=== PATIENT | male | born 1980 | race Caucasian/White ===

== ENCOUNTER 2017-05-13 14:38 | Emergency (ER) | payer BC ==
[~2017-05-13] VITALS: Ht 167.6 cm; Wt 102.1 kg
--- NOTE | 2017-05-13 14:47 | NUR ---
PT CALLED TO TRIAGE, PT NOT IN WAITING ROOM
--- NOTE | 2017-05-13 15:05 | NUR ---
SELF PRESENT TO ED FOR COUGH AND CONGESTION X 2 WEEKS, WITH TWO EPISODES OF BLOOD TINGED SPUTUM. AFEBRILE. VSS
--- NOTE | 2017-05-13 15:39 | NUR ---
Patient discharged to home in stable condition. Written and verbal after care instructions given. Patient verbalizes understanding of instruction.
[2017-05-13 15:57] VITALS: BP 124/40
== END 2017-05-13 15:58 | disposition home or self-care (01) ==
LOC: ER 14:42
DX: R05 Cough (principal); E66.9 Obesity, unspecified; J45.909 Unspecified asthma, uncomplicated
CPT/HCPCS: 71020; 99284; A4606; Z7610

== ENCOUNTER 2017-05-20 18:36 | Emergency (ER) | payer BC ==
[~2017-05-20] VITALS: Ht 167.6 cm; Wt 99.8 kg
[2017-05-20] MEDS ORDERED: IPRATROPIUM NEB FS 0.5 MG/2.5 ML AMPUL.NEB NEB ONE (19:00)
[2017-05-20] MEDS ORDERED: ALBUTEROL FS 2.5 MG/3 ML VIAL.NEB CONTNEB ONE (19:00)
[2017-05-20] MEDS ORDERED: IV NS 0.9% 1,000 ML BAG IV ONE (19:00)
[2017-05-20] MEDS ORDERED: methylPREDNISolone SOD SUCC 125 MG/2ML VIAL IV ONE (19:00)
--- NOTE | 2017-05-20 19:00 | NUR ---
PATIENT PRESENT TO ER, C/O DIFFICULTY BREATHING AND SHORTNESS OF BREATH. STATING HE WAS AT THE ER 1 WEEK AGO WITH THE SAME ISSUES. PATIENT IS A/OX 4. BREATHING EVEN AND UNLABORED, WHEEZING HEARD ON AUSCULTATION. PATIENT IN NO DISTRESS. SAFETY AND COMFORT MEASURES IN PLACE. AWAITING MD ORDERS.
[2017-05-20] MEDS ORDERED: methylPREDNISolone SOD SUCC 125 MG/2ML VIAL ONE (19:02)
--- NOTE | 2017-05-20 19:15 | NUR ---
NEW IV STARTED LEFT HAND, 20 G.
[2017-05-20] MEDS ORDERED: ALBUTEROL FS 2.5 MG/3 ML VIAL.NEB ONE (19:34)
[2017-05-20] MEDS ORDERED: IPRATROPIUM NEB FS 0.5 MG/2.5 ML AMPUL.NEB ONE (19:34)
--- NOTE | 2017-05-20 19:36 | NUR ---
PRANAV BRUMFIELD AT BEDSIDE FOR BREATHING TREATMENT.
[2017-05-20 20:11] VITALS: BP 149/96
--- NOTE | 2017-05-20 20:11 | NUR ---
IV removed. Catheter intact and site benign. Pressure and 4x4 applied to site. No bleeding noted. Patient discharged to home in stable condition. Written and verbal after care instructions given. Patient verbalizes understanding of instruction. Patient is ambulatory with steady gait, no further complaints.
== END 2017-05-20 20:12 | disposition home or self-care (01) ==
LOC: ER 18:44
DX: J20.9 Acute bronchitis, unspecified (principal)
CPT/HCPCS: 71010; 94644; 96361; 96374; 99285; A4606; J2930; J7030; Z7610

== ENCOUNTER 2017-08-30 20:19 | Emergency (ER) | payer BC ==
[~2017-08-30] VITALS: Ht 167.6 cm; Wt 108.9 kg
--- NOTE | 2017-08-30 21:20 | NUR ---
PT A/OX4 PT C/O COUGH AND SOB X 4 DAYS AND STATES IT HAS BEEN GETTING PRODUCTIVELY WORSE, PT ON MONITOR, RT AT BEDSIDE BREATHING TREATMENT ORDERED, GRINDER SET UP OPERATOR THREAD ANGEL AT BEDSIDE WILL CONTINUE TO MONITOR.
[2017-08-30] MEDS ORDERED: IPRATROPIUM NEB FS 0.5 MG/2.5 ML AMPUL.NEB ONE (21:29)
[2017-08-30] MEDS ORDERED: ALBUTEROL FS 2.5 MG/3 ML VIAL.NEB ONE ×2 (21:29→22:19)
[2017-08-30] MEDS ORDERED: predniSONE 20 MG TABLET PO ONE (21:30)
[2017-08-30] MEDS ORDERED: ALBUTEROL FS 2.5 MG/3 ML VIAL.NEB NEB ONE (21:30)
[2017-08-30] MEDS ORDERED: predniSONE 20 MG TABLET ONE (21:30)
[2017-08-30] MEDS ORDERED: IPRATROPIUM NEB FS 0.5 MG/2.5 ML AMPUL.NEB NEB ONE (21:30)
[2017-08-30] MEDS ORDERED: ALBUTEROL FS 2.5 MG/3 ML VIAL.NEB CONTNEB ONE (22:30)
[2017-08-30] MEDS ORDERED: DOXYCYCLINE HYCLATE (100 MG) 100 MG TABLET PO ONE (23:00)
--- NOTE | 2017-08-30 23:18 | NUR ---
Breathing tx complete. pt reports feeling better w/ resp even & unlabored, denies any pain, no sob w/ nad noted. Patient discharged to home in stable condition. Written and verbal after care instructions given. Patient verbalizes understanding of instruction.
[2017-08-30 23:19] VITALS: BP 138/71
== END 2017-08-30 23:20 | disposition home or self-care (01) ==
LOC: ER 20:20
DX: J20.9 Acute bronchitis, unspecified (principal)
CPT/HCPCS: 71010; 94640; 99283; A4606; J7512; Z7610

== ENCOUNTER 2019-01-25 09:06 | Emergency (ER) | payer OTHER ==
[~2019-01-25] VITALS: Ht 170.2 cm; Wt 115.7 kg
[2019-01-25 09:12] VITALS: BP 154/90
[2019-01-25] MEDS ORDERED: predniSONE 20 MG TABLET ONE (09:50)
[2019-01-25] MEDS ORDERED: ALBUTEROL FS 2.5 MG/3 ML VIAL.NEB ONE (09:54)
[2019-01-25] MEDS ORDERED: IPRATROPIUM NEB FS 0.5 MG/2.5 ML AMPUL.NEB ONE (09:54)
[2019-01-25] MEDS ORDERED: predniSONE 20 MG TABLET PO ONE (10:00)
[2019-01-25] MEDS ORDERED: ALBUTEROL FS 2.5 MG/3 ML VIAL.NEB NEB ONE (10:00)
[2019-01-25] MEDS ORDERED: IPRATROPIUM NEB FS 0.5 MG/2.5 ML AMPUL.NEB NEB ONE (10:00)
== END 2019-01-25 11:46 | disposition home or self-care (01) ==
LOC: ER 09:10
DX: J45.901 Unspecified asthma with (acute) exacerbation (principal); I10 Essential (primary) hypertension
CPT/HCPCS: 94640; 99283; J7512

== ENCOUNTER 2020-06-04 09:19 | Emergency (ER) | payer OTHER ==
[~2020-06-04] VITALS: Ht 170.2 cm; Wt 131.1 kg
--- NOTE | 2020-06-04 09:35 | NUR ---
PRESSURE LIKE CHEST PAIN, FEELING FATIGUED SINCE YESTERDAY. PATIENT A/OX4, BREATHING EVEN AND UNLABORED, NO SOB NOTED, ATTACHED TO THE MECHANICAL HANDYMAN. NO DISTRESS NOTED.
--- NOTE | 2020-06-04 09:40 | NUR ---
DR. TATE AT BEDSIDE FOR EVAL.
[2020-06-04] MEDS ORDERED: NITROGLYCERIN 0.4 MG/TAB BOTTLE ONE (09:44)
[2020-06-04 09:51] LABS: BASOPHILS # (AUTO) 0.1 /CMM (0.0-0.2); BASOPHILS % (AUTO) 1.2 % (0.0-2.0); EOSINOPHILS % (AUTO) 3.7 % (0.0-6.0); HEMATOCRIT 48 % (39-51); HEMOGLOBIN 16.3 g/dL (13.5-17.5); LYMPHOCYTES % (AUTO) 18.8 % (20.0-44.0); MEAN CORPUSCULAR HGB CONC 34 g/dl (31.0-36.0); MEAN CORPUSCULAR VOLUME 92 fL (80-96); MONOCYTES # (AUTO) 0.4 /CMM (0.1-1.30); MONOCYTES % (AUTO) 8.3 % (2.0-12.0); NEUTROPHILS # (AUTO) 3.5 /CMM (1.8-8.9); PLATELET COUNT (AUTO) 302 /CMM (150-450); RED BLOOD CELL COUNT(AUTO) 5.28 MIL/uL (4.5-6.0); WHITE BLOOD COUNT (AUTO) 5.2 K/uL (4.3-11.0)
[2020-06-04 10:00] LABS: CALCIUM, SERUM 8.4 mg/dL (8.5-10.1); CARBON DIOXIDE 24 mmol/L (21-32); CHLORIDE 103 mmol/L (98-107); CREATININE 0.9 mg/dL (0.6-1.3); GLUCOSE 157 mg/dL (74-106); POTASSIUM 3.8 mmol/L (3.5-5.1); SODIUM SERUM 140 mmol/L (136-145); UREA NITROGEN, BLOOD 9 mg/dL (7-18)
[2020-06-04] MEDS ORDERED: LABETALOL HCL IV 100MG VIAL IV ONE (10:00)
[2020-06-04] MEDS ORDERED: NITROGLYCERIN 0.4 MG/TAB BOTTLE SL ONE (10:00)
[2020-06-04 10:11] LABS: ALANINE AMINOTRANSFERASE 43 U/L (12-78); ALBUMIN 3.8 g/dL (3.4-5.0); ALKALINE PHOSPHATASE 79 U/L (46-116); ASPARTATE AMINOTRANSFERASE 88 U/L (15-37); B-TYPE NATRIURETIC PEPTIDE 48 PG/ML (0-125); BILIRUBIN,DIRECT 0.1 mg/dL (0.0-0.2); BILIRUBIN,TOTAL 0.4 mg/dL (0.2-1.0); TOTAL PROTEIN, SERUM 7.5 g/dL (6.4-8.2)
--- NOTE | 2020-06-04 10:57 | NUR ---
PATIENT'S CHEST PAIN HAS IMPROVED. IV removed. Catheter intact and site benign. Pressure and 4x4 applied to site. No bleeding noted. Patient discharged to home in stable condition. Written and verbal after care instructions given. Patient verbalizes understanding of instruction.
[2020-06-04 10:58] VITALS: BP 131/69
== END 2020-06-04 10:58 | disposition home or self-care (01) ==
LOC: ER 09:19
DX: I10 Essential (primary) hypertension (principal); E66.01 Morbid (severe) obesity due to excess calories; R00.0 Tachycardia, unspecified; R07.89 Other chest pain; Z68.42 Body mass index [BMI] 45.0-49.9, adult; Z91.19 Patient's noncompliance with other medical treatment and regimen
CPT/HCPCS: 36415; 71045; 80048; 80076; 83880; 84484; 85025; 85730; 93005; 96374; 99285; J3490

== ENCOUNTER 2020-06-10 17:51 | Emergency (ER) | payer OTHER ==
[~2020-06-10] VITALS: Ht 170.2 cm; Wt 125.2 kg
--- NOTE | 2020-06-10 18:17 | NUR ---
CAME IN FOR NNAUSEA, VOMITING AND DIARRHEA. ALSO C/O NO APPETITE x 3 DAYS. EXPOSED TO CO-WORKER TESTED POSITIVE FOR COVID 19. TO ER BED 8, HOOKED TO MONITOR AND POX, CHANGED TO HOSP GOWN, WARM BLANKET PROVIDED, PATIENT AAO x 4, BREATHING EVEN AND UNLABORED, NOT IN RESPIRATORY DISTRESS. AWAITING MD ROBIN.
--- NOTE | 2020-06-10 18:22 | NUR ---
GENEVA GONZALEZ AT BEDSIDE FOR EVAL
[2020-06-10] MEDS ORDERED: ONDANSETRON HCL/PF 4 MG/2 ML VIAL ONE (18:28)
[2020-06-10] MEDS ORDERED: IV NS 0.9% 1,000 ML BAG IV ONE ×2 (18:30→19:30)
[2020-06-10] MEDS ORDERED: ONDANSETRON HCL/PF - ER 4 MG/2 ML VIAL IV ONE (18:30)
[2020-06-10 18:43] LABS: BASOPHILS # (AUTO) 0.1 /CMM (0.0-0.2); BASOPHILS % (AUTO) 0.7 % (0.0-2.0); EOSINOPHILS % (AUTO) 1.5 % (0.0-6.0); HEMATOCRIT 52 % (39-51); HEMOGLOBIN 17.6 g/dL (13.5-17.5); LYMPHOCYTES # (AUTO) 1.3 /CMM (0.8-4.8); LYMPHOCYTES % (AUTO) 11.8 % (20.0-44.0); MEAN CORPUSCULAR HGB CONC 34 g/dl (31.0-36.0); MEAN CORPUSCULAR VOLUME 91 fL (80-96); MONOCYTES % (AUTO) 8.6 % (2.0-12.0); NEUTROPHILS # (AUTO) 8.7 /CMM (1.8-8.9); NEUTROPHILS % (AUTO) 77.4 % (43.0-81.0); PLATELET COUNT (AUTO) 338 /CMM (150-450); RED BLOOD CELL COUNT(AUTO) 5.74 MIL/uL (4.5-6.0); WHITE BLOOD COUNT (AUTO) 11.2 K/uL (4.3-11.0)
--- NOTE | 2020-06-10 18:59 | NUR ---
MÁRQUEZ VIRUS SWAB PCR DONE AND SENT TO LAB.
[2020-06-10 19:05] LABS: CALCIUM, SERUM 9.3 mg/dL (8.5-10.1); CREATININE 1.9 mg/dL (0.6-1.3); POTASSIUM 3.3 mmol/L (3.5-5.1)
--- NOTE | 2020-06-10 19:07 | NUR ---
ENDORSEMENT GIVEN TO JANAK MCDONALD FOR KELLY
[2020-06-10 19:08] LABS: ALBUMIN 4.3 g/dL (3.4-5.0); BILIRUBIN,DIRECT 0.3 mg/dL (0.0-0.2); BILIRUBIN,TOTAL 1.2 mg/dL (0.2-1.0); TOTAL PROTEIN, SERUM 8.3 g/dL (6.4-8.2)
--- NOTE | 2020-06-10 19:14 | NUR ---
REPORT RECEIVED FROM HARRY BILLS FOR KELLY
--- NOTE | 2020-06-10 19:14 | NUR ---
REPORT RECEIVED FROM HARRY BILLS FOR KELLY
--- NOTE | 2020-06-10 19:20 | NUR ---
PT AAOX4, PT HAS NO MEDICAL COMPLAINTS AT THIS TIME, RESPIRATIONS EVEN AND UNLABORED ON RA W/ NAD NOTED. PT CONNECTED TO THE MONITOR AND POX. CALL LIGHT WITHIN REACH. WILL CONTINUE TO MONITOR ACCORDINGLY
[2020-06-10] MEDS ORDERED: POTASSIUM CHLORIDE 20 MEQ TAB.PRT.SR PO ONE ×2 (19:26→19:30)
--- NOTE | 2020-06-10 20:41 | NUR ---
Patient discharged to home in stable condition. Written and verbal after care instructions given. Patient verbalizes understanding of instruction.IV removed. Catheter intact and site benign. Pressure and 4x4 applied to site. No bleeding noted.
[2020-06-10 20:42] VITALS: BP 124/82
== END 2020-06-10 20:42 | disposition home or self-care (01) ==
LOC: ER 17:53
DX: E86.0 Dehydration (principal); N17.9 Acute kidney failure, unspecified; R11.2 Nausea with vomiting, unspecified; R19.7 Diarrhea, unspecified; Z20.828 Contact with and (suspected) exposure to other viral communicable diseases; I10 Essential (primary) hypertension; J45.909 Unspecified asthma, uncomplicated
CPT/HCPCS: 36415; 80048; 80076; 83690; 85025; 96361; 96374; 99284; C9803; J2405; J7030 ×2; U0003

== ENCOUNTER 2020-06-16 12:16 | Emergency (ER) | payer OTHER ==
[~2020-06-16] VITALS: Ht 170.2 cm; Wt 127.0 kg
[2020-06-16 12:23] VITALS: BP 168/108
--- NOTE | 2020-06-16 12:33 | NUR ---
Patient discharged to home in stable condition. Written and verbal after care instructions given. Patient verbalizes understanding of instruction.
== END 2020-06-16 12:34 | disposition home or self-care (01) ==
LOC: ER 12:18
DX: Z00.00 Encounter for general adult medical examination without abnormal findings (principal); I10 Essential (primary) hypertension; J45.909 Unspecified asthma, uncomplicated

== ENCOUNTER 2021-06-10 06:23 | Emergency (ER) | payer SELFPAY ==
[~2021-06-10] VITALS: Ht 170.2 cm; Wt 117.9 kg
[2021-06-10] MEDS ORDERED: ONDANSETRON HCL/PF 4 MG/2 ML VIAL ONE (06:54)
[2021-06-10] MEDS ORDERED: PANTOPRAZOLE 40 MG VIAL ONE (06:54)
--- NOTE | 2021-06-10 07:01 | NUR ---
BLOOD AND URINE COLLECTED AND SENT TO LAB
[2021-06-10] MEDS: ONDANSETRON HCL/PF 4 MG/2 ML VIAL IVP ONE (07:02)
[2021-06-10] MEDS: IV NS 0.9% 1,000 ML BAG IV ONE (07:02)
[2021-06-10] MEDS: PANTOPRAZOLE 40 MG VIAL IV ONE (07:02)
--- NOTE | 2021-06-10 07:02 | NUR ---
PT BIBS FOR COMPAIN OF CHEST PAIN 04/11, RIGHT RIB PAIN 01/10, AND PRESENCE OF N/V/D. NO FEVER. PT IS A/0X4. CURRENTLY ON RA SHOWING NO S/S OF RESP DISTRESS/SOB. BREATHING EVEN AND UNLABORED. WILL CONTINUE TO MONITOR AND ASSESS FOR ANY CHANGES.
[2021-06-10 07:08] LABS: BASOPHILS # (AUTO) 0.1 K/uL (0.0-0.2); BASOPHILS % (AUTO) 0.8 % (0.0-2.0); EOSINOPHILS % (AUTO) 3.2 % (0.0-6.0); HEMATOCRIT 44 % (39-51); HEMOGLOBIN 15.3 g/dL (13.5-17.5); LYMPHOCYTES # (AUTO) 1.1 K/uL (0.8-4.8); LYMPHOCYTES % (AUTO) 15.1 % (20.0-44.0); MEAN CORPUSCULAR HGB CONC 35 g/dl (31.0-36.0); MEAN CORPUSCULAR VOLUME 90 fL (80-96); MONOCYTES # (AUTO) 0.6 K/uL (0.1-1.30); MONOCYTES % (AUTO) 7.9 % (2.0-12.0); NEUTROPHILS # (AUTO) 5.5 K/uL (1.8-8.9); PLATELET COUNT (AUTO) 387 K/uL (150-450); RED BLOOD CELL COUNT(AUTO) 4.93 MIL/uL (4.5-6.0); WHITE BLOOD COUNT (AUTO) 7.5 K/uL (4.3-11.0)
[2021-06-10 07:23] LABS: CALCIUM, SERUM 8.2 mg/dL (8.5-10.1); CARBON DIOXIDE 22 mmol/L (21-32); CHLORIDE 103 mmol/L (98-107); CREATININE 0.9 mg/dL (0.6-1.3); GLUCOSE 120 mg/dL (74-106); POTASSIUM 3.6 mmol/L (3.5-5.1); SODIUM SERUM 138 mmol/L (136-145); UREA NITROGEN, BLOOD 17 mg/dL (7-18)
[2021-06-10 07:29] LABS: ALANINE AMINOTRANSFERASE 26 U/L (12-78); ALBUMIN 3.7 g/dL (3.4-5.0); ALKALINE PHOSPHATASE 55 U/L (46-116); ASPARTATE AMINOTRANSFERASE 35 U/L (15-37); BILIRUBIN,DIRECT 0.1 mg/dL (0.0-0.2); BILIRUBIN,TOTAL 0.2 mg/dL (0.2-1.0); LIPASE 80 U/L (73-393); TOTAL PROTEIN, SERUM 7.3 g/dL (6.4-8.2)
--- NOTE | 2021-06-10 07:42 | NUR ---
Patient in bed, awake, alert and orientedx4 denies any N/V at this time. will continue to monitor.
[2021-06-10 08:07] LABS: BILIRUBIN,URINE NEGATIVE (NEGATIVE); COLOR,URINE STRAW (YELLOW); LEUKOCYTE ESTERASE ,URINE NEGATIVE (NEGATIVE); NITRITE, URINE NEGATIVE (NEGATIVE); PROTEIN,URINE NEGATIVE (NEGATIVE); UGLUCOSE NEGATIVE (NEGATIVE); UROBILINOGEN,URINE 0.2 EU/dL (0.2)
[2021-06-10] MEDS ORDERED: PANT40TA2 PO (08:54)
[2021-06-10 09:06] VITALS: BP 136/88
--- NOTE | 2021-06-10 09:06 | NUR ---
Patient discharged to home in stable condition. Written and verbal after care instructions given. Patient verbalizes understanding of instruction.
== END 2021-06-10 09:07 | disposition home or self-care (01) ==
LOC: ER 06:23
DX: F10.10 Alcohol abuse, uncomplicated (principal); K76.0 Fatty (change of) liver, not elsewhere classified; R10.13 Epigastric pain; R11.10 Vomiting, unspecified; I10 Essential (primary) hypertension; J45.909 Unspecified asthma, uncomplicated; Y90.9 Presence of alcohol in blood, level not specified
CPT/HCPCS: 36415; 71045; 74176; 80048; 80076; 80307; 80320; 81003; 83690; 84484; 85025; 93005; 96361; 96374; 96375; 99285; C9113; J2405; J7030; G0480